=== PATIENT | female | born 1955 | race Asian ===

== ENCOUNTER 2018-05-17 22:03 | Emergency (ER) | payer MEDICAID ==
[~2018-05-17] VITALS: Ht 154.9 cm; Wt 59.0 kg
--- NOTE | 2018-05-17 22:39 | Emergency Room Report ---
History of Present Illness General Chief Complaint: Abdominal Pain Source: Patient, Medical Record, EMS Present Illness HPI Is a 63-year-old female who has a history of schizophrenia and dementia. She is in a half-way. At baseline she is not very verbal. She presents with chief complaint abdominal pain. Onset appeared to be wanted to days. She shook her head yes when asked about pain. No nausea no vomiting. No fever chills. No diarrhea. She does have a history of exploratory laparotomy. History is otherwise limited because of her condition. Allergies: Coded Allergies: PENICILLINS (Verified Allergy, Unknown, 05/17/18) Patient History Past Medical History: see triage record, old chart reviewed, psych hx Past Surgical History: other Pertinent Family History: other Social History: Denies: smoking Last Menstrual Period: UNK Now: No Immunizations: other Reviewed Nursing Documentation: PMH: Agreed; PSxH: Agreed Nursing Documentation-PMH Past Medical History: No History, Except For Hx Cardiac Problems: No - hypothyroid Hx Hypertension: Yes Hx Diabetes: Yes History Of Psychiatric Problem: Yes - schizophrenia Hx Neurological Problems: Yes - dementia Review of Systems Eye: Denies: eye pain, blurred vision ENT: Denies: ear pain, nose congestion, throat swelling Respiratory: Denies: cough, shortness of breath Cardiovascular: Denies: chest pain, palpitations Gastrointestinal: Reports: abdominal pain; Denies: diarrhea, nausea, vomiting Musculoskeletal: Denies: back pain, joint pain Skin: Denies: rash Neurological: Denies: headache, numbness Endocrine: Denies: increased thirst, increased urine Hematologic/Lymphatic: Denies: easy bruising All Other Systems: negative except mentioned in HPI Physical Exam Vital Signs Date Time Temp Pulse Resp B/P (MAP) Pulse Ox O2 Delivery O2 Flow Rate FiO2 05/17/18 22:08 97.9 70 18 130/65 99 Room Air 97.9 vitals normal Sp02 EP Interpretation: reviewed, normal General Appearance: well appearing, no apparent distress, alert Head: normocephalic, atraumatic Eyes: bilateral eye PERRL, bilateral eye EOMI ENT: hearing grossly normal, normal pharynx Neck: full range of motion, supple, no meningismus Respiratory: chest non-tender, lungs clear, normal breath sounds Cardiovascular #1: regular rate, rhythm, no murmur Gastrointestinal: normal bowel sounds, no mass, no organomegaly, no bruit, non- distended, tenderness - patient grimace with palpation. Laparotomy scar is clean. Musculoskeletal: back normal, gait/station normal, normal range of motion Psychiatric: mood/affect normal Skin: warm/dry Medical Decision Making Diagnostic Impression: Primary Impression: Abdominal pain Qualified Codes: R10.84 - Generalized abdominal pain Additional Impression: UTI (urinary tract infection) Qualified Codes: N30.00 - Acute cystitis without hematuria ER Course Patient presents with abdominal pain. No evidence of an acute abdomen or obstruction. She felt better now. We'll discharge home. She does have UTI on urine. Antibiotics given. Lab Results Impression labs unremarkable CT/MRI/US Diagnostic Results CT/MRI/US Diagnostic Results : Imaging Test Ordered: CT abdomen and pelvis Impression Read by radiologist. Rectal wall thickening and adjacent edema may be due to proctitis or malignancy. Follow-up is useful. No Obstruction or appendicitis Last Vital Signs Date Time Temp Pulse Resp B/P (MAP) Pulse Ox O2 Delivery O2 Flow Rate FiO2 05/17/18 22:08 97.9 70 18 130/65 99 Room Air 97.9 Status: improved Disposition: ER SNF Condition: Stable Scripts Levofloxacin* (LEVAQUIN*) 500 Mg Tablet 500 MG ORAL DAILY, #7 TAB Prov: BELL GALLARDO M.D. 05/18/18 Patient Instructions: Abdominal Pain, Adult Additional Instructions: Follow-up with your in 2-3 days. Return of worse. BELL GALLARDO M.D. May 17, 2018 22:39
[2018-05-17] MEDS ORDERED: Morphine Sulfate 4mg/ml Inj (IV USE ONLY) IVP ONE (22:45)
[2018-05-17 23:45] LABS: HEMATOCRIT 41.8 % (37.0-47.0); HEMOGLOBIN 13.6 G/DL (12.0-16.0); MEAN CORPUSCULAR VOLUME 86 FL (80-99); PLATELET COUNT 200 K/UL (150-450); RED BLOOD COUNT 4.88 M/UL (4.20-5.40); RED CELL DISTRIBUTION WIDTH 13.1 % (11.6-14.8); WHITE BLOOD COUNT 6.8 K/UL (4.8-10.8)
[2018-05-17 23:55] LABS: ANION GAP 12 mmol/L (5-15); BLOOD UREA NITROGEN 24 mg/dL (7-18); CALCIUM 9.5 MG/DL (8.5-10.1); CARBON DIOXIDE 26 MMOL/L (21-32); CHLORIDE 102 MMOL/L (98-107); CREATININE 0.8 MG/DL (0.55-1.30); SODIUM 140 MMOL/L (136-145)
[2018-05-17 23:55] LABS: APPEARANCE,URINE CLOUDY; BILIRUBIN, URINE NEGATIVE (NEGATIVE); COLOR,URINE PALE YELLOW; GLUCOSE, URINE (UA) NEGATIVE (NEGATIVE); KETONES,URINE 1+ (NEGATIVE); LEUKOCYTE ESTERASE ,URINE 3+ (NEGATIVE); NITRITE,URINE NEGATIVE (NEGATIVE); PH,URINE 6 (4.5-8.0); PROTEIN,URINE 2+ (NEGATIVE); UROBILINOGEN,URINE NORMAL MG/DL (0.0-1.0)
[2018-05-18] LABS: ALANINE AMINOTRANSFERASE 22 U/L (12-78); ALBUMIN 3.7 G/DL (3.4-5.0); ALBUMIN/GLOBULIN RATIO 0.9 (1.0-2.7); ALKALINE PHOSPHATASE 62 U/L (46-116); ASPARTATE AMINO TRANSFERASE 13 U/L (15-37); BILIRUBIN,TOTAL 0.4 MG/DL (0.2-1.0)
[2018-05-18] MEDS ORDERED: cefTRIAXone 1 GM in NS 55 ML IVPB ONE ×2
[2018-05-18] MEDS ORDERED: LEVAQUIN500 MG ORAL (01:10)
[2018-05-18 03:17] VITALS: BP 130/65
--- NOTE | 2018-05-18 11:38 | Diagnostic Imaging Report ---
Indication: Abdominal pain for 3 days Technique: Spiral acquisitions obtained through the abdomen and pelvis. No oral contrast utilized, per emergency room physician request No IV contrast utilized, per referring physician request.. Multiplanar reconstructions were generated. Total dose length product 684.4 mGycm. CTDIvol(s) 12.77 mGy. Dose reduction achieved using automated exposure control Comparison: None Findings: There is questionable wall thickening of the proximal rectum. It is minimally distended with stool. Considerable stool is seen elsewhere within the colon as well. No evidence of diverticulosis or diverticulitis. The appendix is normal. No small bowel distention. There is a small fat-containing periumbilical hernia. 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 The distal esophagus is unremarkable. The stomach is otherwise unremarkable. Lack of IV contrast limits assessment of the solid organs. The liver, gallbladder, bile ducts are grossly unremarkable. The pancreatic body and tail are markedly atrophic. The anatomy of the pancreatic head region is poorly delineated. There may be a duodenal diverticulum. The spleen, adrenals, kidneys are all unremarkable. No retroperitoneal or mesenteric mass or adenopathy. No pelvic mass or adenopathy. Uterus and adnexal structures are unremarkable. The bladder is unremarkable. The included lung bases demonstrate fairly extensive groundglass opacities bilaterally. There is trace pleural fluid on the right. The bones are unremarkable. Impression: Mild rectal distention with stool and questionable slight wall thickening, could indicate mild fecal impaction and stercoral proctitis. No acute abdominal pelvic process process otherwise. Bilateral pulmonary parenchymal groundglass opacities and trace right pleural fluid Pancreatic atrophy Other findings as noted, including old gastrostomy tract, duodenal diverticulum This agrees with the preliminary interpretation provided overnight by [facility] service. The CT scanner at [facility] is accredited by the [employer] and the scans are performed using protocols designed to limit radiation exposure to as low as reasonably achievable to attain images of sufficient resolution adequate for diagnostic evaluation.
== END 2018-05-18 01:30 ==
LOC: EDBD 22:03 → EMR 22:45
DX: N39.0 Urinary tract infection, site not specified (principal); E11.9 Type 2 diabetes mellitus without complications; I10 Essential (primary) hypertension; E03.9 Hypothyroidism, unspecified; F20.9 Schizophrenia, unspecified; F03.90 Unspecified dementia, unspecified severity, without behavioral disturbance, psychotic disturbance, mood disturbance, and anxiety; Z88.0 Allergy status to penicillin
CPT/HCPCS: 36415; 74176; 80053; 81003; 83690; 85025; 87086; 87181; 96361; 96365; 99284; J0696; J2270; J2405